=== PATIENT | female | born 1965 | race Caucasian/White ===

== ENCOUNTER 2018-07-30 19:30 | Emergency (ER) | payer OTHER ==
[~2018-07-30] VITALS: Ht 160 cm; Wt 73.9 kg
[2018-07-30] MEDS ORDERED: VASOTEC5 MG PO (19:41)
[2018-07-30] MEDS ORDERED: KETO10TA2 PO (21:34)
[2018-07-30] MEDS ORDERED: CYCLOBENZAPRINE10 MG PO (21:34)
[2018-07-30] MEDS ORDERED: ORPHENADRINE C100 MG PO (21:34)
== END 2018-07-30 22:07 | disposition home or self-care (01) ==
LOC: ER 19:30
DX: M62.838 Other muscle spasm (principal)